=== PATIENT | female | born 1990 | race Caucasian/White ===

== ENCOUNTER → 2017-03-08 | Outpatient (CLI) | payer BC ==
[~2017-03-08] MED LIST: ZOFR4TAB3 PO
[2017-03-08 18:15] LABS: BASO # 0.1 10^3/uL (0.0-0.2); BASO % 0.8 % (0.0-1.0); IMMATURE GRANULOCYTE % 0.3 % (0-0); LYMPH # 1.6 10^3/uL (1.5-6.5); LYMPH % 27.4 % (24.0-44.0); MEAN CORPUSCULAR HEMOGLOBIN 29.7 pg (27.0-33.0); MEAN CORPUSCULAR HGB CONC 33.7 g/dl (32.0-36.5); MEAN CORPUSCULAR VOLUME 88.3 fl (80.0-96.0); MONO # 0.5 10^3/uL (0.0-0.8); MONO % 8.1 % (0.0-5.0); NEUTROPHILS # 3.8 10^3/uL (1.8-7.7); NEUTROPHILS % 63.4 % (36.0-66.0); PLATELET COUNT, AUTOMATED 265 10^3/uL (150-450); RED CELL DISTRIBUTION WIDTH 11.9 % (11.5-14.5); WHITE BLOOD COUNT 5.9 10^3/uL (4.0-10.0)
[2017-03-08 18:19] LABS: ADD MORPHOLOGY? NO
[2017-03-08 18:41] LABS: ALBUMIN/GLOBULIN RATIO 1.21 (1.00-1.93); ALKALINE PHOSPHATASE 46 U/L (45-117); ALT/SGPT 33 U/L (12-78); ANION GAP 6 MEQ/L (8-16); AST/SGOT 14 U/L (15-37); BILIRUBIN,TOTAL 0.6 MG/DL (0.2-1.0); BLOOD UREA NITROGEN 10 MG/DL (7-18); CALCIUM LEVEL 8.6 MG/DL (8.5-10.1); CARBON DIOXIDE LEVEL 31 MEQ/L (21-32); CHLORIDE LEVEL 104 MEQ/L (98-107); CREATININE FOR GFR 0.62 MG/DL (0.55-1.02); GLOMERULAR FILTRATION RATE > 60.0 (>60); GLUCOSE, FASTING 75 MG/DL (70-105); POTASSIUM SERUM 3.8 MEQ/L (3.5-5.1); SODIUM LEVEL 141 MEQ/L (136-145); TOTAL PROTEIN 7.3 GM/DL (6.4-8.2)
== END ==
LOC: M WUC 15:10
PROVIDERS: ATTEND Physician Assistant
DX: R19.7 Diarrhea, unspecified (principal)

== ENCOUNTER → 2017-03-09 | Outpatient (REF) | payer BC | LOC: M LAB REF 10:16 | PROVIDERS: ATTEND Physician Assistant | DX: R19.7 Diarrhea, unspecified (principal); R21 Rash and other nonspecific skin eruption ==

== ENCOUNTER 2017-03-10 10:06 | Emergency (ER) | payer BC ==
[~2017-03-10] VITALS: Ht 152.4 cm; Wt 80.0 kg
[2017-03-10] MEDS ORDERED: NS 1,000 ML IV ONE (14:00)
[2017-03-10] MEDS ORDERED: ONDANSETRON 4MG/2ML VIAL (J2405) IV ONE (14:00)
[2017-03-10 14:40] LABS: BASO % 0.7 % (0.0-1.0); IMMATURE GRANULOCYTE % 0.4 % (0-0); LYMPH # 1.6 10^3/uL (1.5-6.5); LYMPH % 30.5 % (24.0-44.0); MEAN CORPUSCULAR HEMOGLOBIN 29.7 pg (27.0-33.0); MEAN CORPUSCULAR VOLUME 87.1 fl (80.0-96.0); MONO # 0.5 10^3/uL (0.0-0.8); MONO % 8.9 % (0.0-5.0); NEUTROPHILS # 3.2 10^3/uL (1.8-7.7); NEUTROPHILS % 59.5 % (36.0-66.0); PLATELET COUNT, AUTOMATED 281 10^3/uL (150-450); RED CELL DISTRIBUTION WIDTH 11.9 % (11.5-14.5); WHITE BLOOD COUNT 5.4 10^3/uL (4.0-10.0)
[2017-03-10 14:43] LABS: ADD MORPHOLOGY? NO
[2017-03-10 15:11] LABS: CONTROL LINE UCG INT CTR LINE PRESENT
[2017-03-10 15:15] LABS: ALBUMIN 4.1 GM/DL (3.2-5.2); ALBUMIN/GLOBULIN RATIO 1.28 (1.00-1.93); ALKALINE PHOSPHATASE 49 U/L (45-117); ALT/SGPT 89 U/L (12-78); ANION GAP 8 MEQ/L (8-16); AST/SGOT 41 U/L (15-37); BILIRUBIN,DIRECT 0.2 MG/DL (0.0-0.2); BILIRUBIN,TOTAL 0.6 MG/DL (0.2-1.0); BLOOD UREA NITROGEN 8 MG/DL (7-18); CALCIUM LEVEL 8.7 MG/DL (8.5-10.1); CARBON DIOXIDE LEVEL 28 MEQ/L (21-32); CHLORIDE LEVEL 105 MEQ/L (98-107); CREATININE FOR GFR 0.57 MG/DL (0.55-1.02); GLOMERULAR FILTRATION RATE > 60.0 (>60); GLUCOSE, FASTING 81 MG/DL (70-105); POTASSIUM SERUM 3.7 MEQ/L (3.5-5.1); SODIUM LEVEL 141 MEQ/L (136-145); TOTAL PROTEIN 7.3 GM/DL (6.4-8.2)
--- NOTE | 2017-03-10 15:32 | REP ---
RIGHT UPPER QUADRANT ULTRASOUND: Real-time sonographic evaluation of the right upper quadrant performed. There is mild sludge in the gallbladder without gallstones. There is no gallbladder wall thickening or pericholecystic fluid. There is no intrahepatic or extrahepatic biliary dilatation, common bile duct measuring 4 mm in diameter. Laterally in the right lobe of the liver is a 1 cm hyperechoic nodule consistent with hemangioma. No other liver abnormality is seen. Pancreas is grossly unremarkable, but not optimally seen due to overlying bowel gas. Right kidney demonstrates no hydronephrosis or nephrolithiasis with normal size at 10.9 cm in length. IMPRESSION: Mild sludge in the gallbladder without gallstones, gallbladder wall thickening, pericholecystic fluid or biliary diltation. There appears to be a small hemangioma in the right lobe of the liver. Signed by Bon Merino MD 03/10/2017 04:17 P
[2017-03-10] MEDS ORDERED: ZOFR4TAB3 PO (16:32)
[2017-03-10 16:38] VITALS: BP 179/88
== END 2017-03-10 16:44 | disposition home or self-care (01) ==
LOC: M ED 10:06
DX: K80.50 Calculus of bile duct without cholangitis or cholecystitis without obstruction (principal); Z83.79 Family history of other diseases of the digestive system; Z84.1 Family history of disorders of kidney and ureter
CPT/HCPCS: 36415; 76705; 80048; 80076; 81001; 81025; 83690; 84703; 85025; 87086; 96374; 99284; J2405

== ENCOUNTER → 2017-10-30 | Outpatient (REF) | payer BC | LOC: M LAB REF 17:08 | DX: Z12.4 Encounter for screening for malignant neoplasm of cervix (principal) | CPT/HCPCS: G0123 ==

== ENCOUNTER → 2018-03-05 | Outpatient (REF) | payer BC | LOC: M LAB REF 13:26 | DX: R30.0 Dysuria (principal) | CPT/HCPCS: 87186 ==

== ENCOUNTER → 2018-10-19 | Outpatient (REF) | payer BC ==
[~2018-10-19] MED LIST changes: +ZOFR4TAB14 PO; -ZOFR4TAB3 PO
[2018-10-19 12:42] LABS: INFLUENZA A AMPLIFICATION NEGATIVE (NEGATIVE); INFLUENZA B AMPLIFICATION NEGATIVE (NEGATIVE)
== END ==
LOC: M LAB REF 11:59
PROVIDERS: ATTEND Physician Assistant Medical
DX: J11.1 Influenza due to unidentified influenza virus with other respiratory manifestations (principal)

== ENCOUNTER → 2018-11-23 | Outpatient (REF) | payer OTHER | LOC: M LAB REF 17:38 | PROVIDERS: ATTEND Advanced Practice Midwife | DX: Z12.4 Encounter for screening for malignant neoplasm of cervix (principal) ==

== ENCOUNTER → 2019-01-07 | Outpatient (REF) | payer OTHER ==
[2019-01-07 15:29] LABS: CHLAMYDIA DNA AMPLIFICATION NEGATIVE (NEGATIVE); GC DNA AMPLIFICATION NEGATIVE (NEGATIVE)
== END ==
LOC: M LAB REF 12:45
PROVIDERS: ATTEND Physician Assistant
DX: R30.0 Dysuria (principal); Z20.2 Contact with and (suspected) exposure to infections with a predominantly sexual mode of transmission

== ENCOUNTER → 2019-01-24 | Outpatient (CLI) | payer BC, OTHER | LOC: M LAB 16:23 | PROVIDERS: ATTEND Advanced Practice Midwife | DX: Z32.01 Encounter for pregnancy test, result positive (principal); Z3A.00 Weeks of gestation of pregnancy not specified ==

== ENCOUNTER → 2019-01-27 | Outpatient (CLI) | payer BC, OTHER ==
--- NOTE | 2019-01-27 19:48 | REP ---
HISTORY: Supervision of normal . COMPARISON: None. Transvesical imaging was performed. Within the uterus there is an anechoic structure with increased echo surrounding it consistent with a decidual reaction. Within the gestational sac there is echogenic material consistent with a pole, the mean crown rump length measurement of which is consistent with an 8 week 0 day gestational age. Based on that the estimated date of delivery is 09/08/2019. Within the gestational sac there is a tiny anechoic structure consistent with a yolk sac. Doppler interrogation of the heart shows a heart rate of 172 beats per minute. Evaluation of the maternal adnexal spaces showed no abnormalities. No chorionic or subchorionic abnormality was noted. IMPRESSION: Early OB ultrasound as described above. Electronically Signed by Mason Gonzalez DO 01/28/2019 02:12 P
== END ==
LOC: M RAD 17:20
PROVIDERS: ATTEND Obstetrics & Gynecology
DX: Z34.81 Encounter for supervision of other normal pregnancy, first trimester (principal); Z36.89 Encounter for other specified antenatal screening; Z3A.08 8 weeks gestation of pregnancy

== ENCOUNTER → 2019-02-23 | Outpatient (CLI) | payer BC, OTHER ==
[2019-02-23 15:28] LABS: BASO % 0.5 % (0.0-1.0); HEMOGLOBIN 12.1 g/dl (12.0-15.5); LYMPH # 1.9 10^3/uL (1.5-5.0); LYMPH % 22.7 % (24.0-44.0); MEAN CORPUSCULAR HEMOGLOBIN 29.7 pg (27.0-33.0); MEAN CORPUSCULAR HGB CONC 33.6 g/dl (32.0-36.5); MEAN CORPUSCULAR VOLUME 88.5 fl (80.0-96.0); MONO # 0.6 10^3/uL (0.0-0.8); MONO % 6.6 % (0.0-5.0); NEUTROPHILS # 5.8 10^3/uL (1.5-8.5); PLATELET COUNT, AUTOMATED 255 10^3/uL (150-450); RED BLOOD COUNT 4.07 10^6/uL (4.00-5.40); WHITE BLOOD COUNT 8.3 10^3/uL (4.0-10.0)
[2019-02-23 16:50] LABS: CHLAMYDIA DNA AMPLIFICATION NEGATIVE (NEGATIVE); GC DNA AMPLIFICATION NEGATIVE (NEGATIVE)
[2019-02-25 09:42] LABS: HIV 1&2 SCREEN CENTAUR NEGATIVE (NEGATIVE); RUBELLA IgG QUALITATIVE IMMUNE (IMMUNE)
== END ==
LOC: M LAB 14:44
PROVIDERS: ATTEND Advanced Practice Midwife
DX: Z36.89 Encounter for other specified antenatal screening (principal)

== ENCOUNTER → 2019-04-07 | Outpatient (CLI) | payer BC, OTHER ==
--- NOTE | 2019-04-07 09:07 | REP ---
Clinical: Anatomical evaluation. Comparison: None . Findings: Examination demonstrates a single live intrauterine in cephalic presentation. motion is identified by technologist. Placenta is noted posterior and grade zero without evidence for placenta previa or abruption. Amniotic fluid volume is normal. Cervix measures 5.6 cm in length and appears closed. No evidence for nuchal cord. Gestational age by first US 18 weeks 0 days with ALMITA 09/08/2019 . Gestational age by current measurements 18 weeks 3-day with ALMITA 09/05/2019 . FHR equals 139 beats per minute. BPD 4.1 cm 18 weeks 3 days HC 14.7 cm 17 weeks 6 days AC 13.4 cm 18 weeks 6 days FL 2.8 cm 18 weeks 5 days HL 2.7 cm 18 weeks 6 days HC/AC ratio 1.09 Estimated weight 252 grams ( 72nd percentile). Anatomical assessment demonstrates normal structures including cranium, choroid plexus, cavum, cerebellum/posterior fossa, facial features, lungs, four-chamber heart, diaphragm, stomach, cord insertion, kidneys/bladder, spine, and extremities. Limited evaluation of the cardiac ventricular outflow tracts and three-vessel cord noted. Impression: 1. Single live intrauterine in cephalic presentation demonstrating appropriate interval growth compared to first ultrasound. 2. Limited evaluation of the ventricular outflow tracts and three-vessel cord. Remainder of the anatomical assessment is complete and normal. Electronically Signed by George Guido MD 04/07/2019 08:58 A
== END ==
LOC: M RAD 07:43
PROVIDERS: ATTEND Advanced Practice Midwife
DX: Z34.82 Encounter for supervision of other normal pregnancy, second trimester (principal)

== ENCOUNTER → 2019-04-25 | Outpatient (CLI) | payer BC, OTHER ==
--- NOTE | 2019-04-25 13:53 | REP ---
OB ULTRASOUND: Real-time sonographic evaluation of the gravid uterus performed. There is a single intrauterine gestation with an estimated gestational age 20 weeks 4 days, EDC 09/08/2019. Today's measurements indicate appropriate growth. Biometry and Growth: BPD 50 mm = 21 weeks 0 days, 59th percentile HC 180 mm = 20 weeks 3 days, 44th percentile AC 161 mm = 20 weeks 1 day, 62nd percentile FL 37 mm = 21 weeks 5 days, 79th percentile HC/AC ratio 1.12 with a normal range. Estimated weight 417 grams, 72nd percentile. SEEN/GROSSLY UNREMARKABLE Lateral ventricles Yes Posterior fossa Yes Upper lip Yes Four-chamber heart Yes LVOT Yes RVOT Yes Stomach Yes Cord insertion Yes Three vessel cord Yes Kidneys No Bladder Yes Spine No Cervical length: Closed and measures 5.7 cm in length. heart rate: 157 beats per minute. position: Variable. Placenta: Posterior and grade 0 with no previa or abruption. Amniotic fluid: Within normal limits. Electronically Signed by Bon Merino MD 04/27/2019 10:20 A
== END ==
LOC: M RAD 11:05
PROVIDERS: ATTEND Advanced Practice Midwife
DX: Z34.82 Encounter for supervision of other normal pregnancy, second trimester (principal)

== ENCOUNTER → 2019-05-09 | Outpatient (REF) | payer BC | LOC: M PLALAB 09:00 | PROVIDERS: ATTEND Advanced Practice Midwife | DX: Z33.1 Pregnant state, incidental (principal) ==

== ENCOUNTER → 2019-06-10 | Outpatient (CLI) | payer BC, OTHER | LOC: M PLALAB 11:35 | PROVIDERS: ATTEND Advanced Practice Midwife | DX: R73.01 Impaired fasting glucose (principal) ==

== ENCOUNTER → 2019-06-15 | Outpatient (CLI) | payer BC, OTHER | LOC: M LAB 08:03 | PROVIDERS: ATTEND Advanced Practice Midwife | DX: R73.02 Impaired glucose tolerance (oral) (principal) ==

== ENCOUNTER → 2019-08-12 | Outpatient (REF) | payer OTHER | LOC: M SFHCWAGY 18:22 | PROVIDERS: ATTEND Advanced Practice Midwife | DX: Z34.93 Encounter for supervision of normal pregnancy, unspecified, third trimester (principal) ==

== ENCOUNTER → 2019-08-16 | Outpatient (REF) | payer OTHER ==
[2019-08-16 18:13] LABS: HEMATOCRIT 31.1 % (36.0-47.0); HEMOGLOBIN 10.1 g/dl (12.0-15.5); MEAN CORPUSCULAR HEMOGLOBIN 28.6 pg (27.0-33.0); MEAN CORPUSCULAR HGB CONC 32.5 g/dl (32.0-36.5); MEAN CORPUSCULAR VOLUME 88.1 fl (80.0-96.0); PLATELET COUNT, AUTOMATED 216 10^3/uL (150-450); RED BLOOD COUNT 3.53 10^6/uL (4.00-5.40); WHITE BLOOD COUNT 9.7 10^3/uL (4.0-10.0)
[2019-08-16 18:45] LABS: CREATININE,RANDOM URINE 73.4 MG/DL; TOTAL PROTEIN,RANDOM URINE 20.1 MG/DL (0.0-12.0)
== END ==
LOC: M PLALAB 14:17
PROVIDERS: ATTEND Advanced Practice Midwife
DX: O13.3 Gestational [pregnancy-induced] hypertension without significant proteinuria, third trimester (principal)

== ENCOUNTER 2019-08-19 07:54 | Inpatient (IN) | payer BC, OTHER ==
[2019-08-19] VITALS (15 sets, daily range): BP systolic 103–139; BP diastolic 59–80
[~2019-08-19] VITALS: Ht 152.4 cm; Wt 101.7 kg
[2019-08-19] MEDS ORDERED: PRENTAB9 PO (08:29)
[2019-08-19] MEDS: miSOPROStol 50 MCG 1/2 TAB (S0191) PO SCH ×3 (09:07→17:12)
--- NOTE | 2019-08-19 09:20 | HPE ---
DATE OF ADMISSION: 08/19/2019 Saima is a 28-year-old 2, para 1-0-0-1 at 37 weeks gestation, EDC of 09/08/2019 based on first trimester ultrasound. She presents to labor and delivery today for induction of labor due to gestational hypertension. She does deny headaches, visual disturbances, epigastric pain and right upper quadrant discomfort. She denies any regular painful contractions, vaginal bleeding and leakage of fluid. The fetus has been active. Her care was initiated at [facility] in the first trimester. course uncomplicated until this week's diagnosis of gestational hypertension. OBSTETRICAL HISTORY: December 2010 40 weeks gestation, spontaneous labor. Spontaneous vaginal delivery, 7 pound 5 ounce male. OBSTETRIC LABS: A-, antibody screen negative, varicella immune, VDRL nonreactive. Urine culture no growth. Hep B surface antigen negative. HIV negative. Hep C antibody nonreactive. Gonorrhea and chlamydia negative, 1-hour glucose elevated at 134. Her 3-hour glucose tolerance test was normal fasting 82, 1-hour 162, 2-hour 116 and 3-hour 74 and her GBS is negative. PAST MEDICAL HISTORY: Childhood varicella. SURGERIES: [place] tooth extraction. FAMILY HISTORY: Diabetes, hypertension, thyroid dysfunction. SOCIAL HISTORY: The patient is . She is a nonsmoker. She denies alcohol and drug use. No history of any sexually transmitted infections and she denies history of abuse physical, sexual and emotional allergies. ALLERGIES: No known drug allergies. CURRENT MEDICATION: vitamin. OBJECTIVE: Temperature 97.7, pulse 96, respirations 18, BP is 133/73 upon arrival lying flat in the bed at rest. She is alert and oriented times three. No apparent discomfort. heart rate is 155 with moderate variability, positive accelerations, no decelerations. There is no pattern of contractions. Her abdomen is gravid, cephalic presentation. Estimated weight 7 pounds. Sterile vaginal exam 1 cm dilated, 50% effaced, -3 station, posterior and soft. No bloody show with the exam. ASSESSMENT: Intrauterine at 37 weeks. heart rate category 1. Gestational hypertension. PLAN: Admit the patient to labor and delivery. Out of bed ad kassidy. Regular diet at this time. Repeat pre-eclamptic labs and spot urine today. Start misoprostol 50 mcg by mouth every 4 hours cervical ripening. Pitocin IV for induction. I did review risks, benefits and alternatives with the patient, all of her questions have been answered. She has been verbally consented for emergency surgery and blood products if they are necessary. I do anticipate cervical ripening, labor and vaginal delivery.
[2019-08-19 09:29] LABS: HEMATOCRIT 29.5 % (36.0-47.0); HEMOGLOBIN 9.8 g/dl (12.0-15.5); MEAN CORPUSCULAR HEMOGLOBIN 28.9 pg (27.0-33.0); MEAN CORPUSCULAR HGB CONC 33.2 g/dl (32.0-36.5); PLATELET COUNT, AUTOMATED 200 10^3/uL (150-450); RED BLOOD COUNT 3.39 10^6/uL (4.00-5.40); WHITE BLOOD COUNT 9.5 10^3/uL (4.0-10.0)
[2019-08-19 09:58] LABS: TOTAL PROTEIN,RANDOM URINE 42.5 MG/DL (0.0-12.0)
[2019-08-19 10:01] LABS: ALT/SGPT 14 U/L (12-78); BILIRUBIN,TOTAL 0.3 MG/DL (0.2-1.0); CREATININE FOR GFR 0.45 MG/DL (0.55-1.30); GLOMERULAR FILTRATION RATE > 60.0 (>60); LDH LACTATE DEHYDROGENASE 227 U/L (84-246); URIC ACID 3.1 MG/DL (2.6-6.0)
[2019-08-19] MEDS ORDERED: OXYTOCIN DRIP 30 UNITS in IV 1 EA IV SCH (18:00)
[2019-08-19] MEDS: LR 1,000 ML IV SCH (21:26)
[2019-08-20] VITALS (18 sets, daily range): BP systolic 113–142; BP diastolic 59–89
[2019-08-20] MEDS ORDERED: PROMETHAZINE INJ 25 MG/ML VIAL (J2550) IV ONE (01:15)
[2019-08-20] MEDS ORDERED: BUTORPHANOL 2 MG/ML INJ (J0595) IV ONE (01:15)
[2019-08-20] MEDS: LR 1,000 ML IV SCH (05:17)
[2019-08-20] MEDS ORDERED: FENTANYL 2MCG/ML ROPIVACAINE 0.2% IN 0.9% NACL 100ML IVBAG As Ordered ONE (05:35)
[2019-08-20] MEDS ORDERED: SLF 3 ML SYR IV SCH (06:00)
[2019-08-20] MEDS ORDERED: OXYTOCIN DRIP 30 UNITS in IV 1 EA IV SCH (06:49)
[2019-08-20] MEDS ORDERED: DOCUSATE SODIUM 100 MG CAP PO PRN (07:00)
[2019-08-20] MEDS ORDERED: MEASLES,MUMPS,RUBELLA VACCINE INJ (MMR-II) (90707) SC SCH (07:00)
[2019-08-20] MEDS ORDERED: ACETAMINOPHEN 500 MG TAB PO PRN (07:00)
[2019-08-20] MEDS ORDERED: IBUPROFEN 800 MG TAB PO PRN (07:00)
[2019-08-20] MEDS ORDERED: RHOGAM 300 MCG (1500 IU) INJ (J2790) IM SCH (07:00)
[2019-08-20] MEDS ORDERED: IBUPROFEN 600 MG TAB PO PRN (07:00)
[2019-08-20] MEDS ORDERED: DIBUCAINE 1% OINTMENT 30GM TOP PRN (07:00)
[2019-08-20] MEDS ORDERED: ACETAMINOPHEN TAB 650MG DOSE (2X325MG) PO PRN (07:00)
[2019-08-20] MEDS ORDERED: SLF 3 ML SYR IV PRN (08:15)
[2019-08-20] MEDS ORDERED: PRENATAL VITAMINS CHEWABLE TABLET PO SCH (09:00)
--- NOTE | 2019-08-20 11:31 | DN ---
DATE: 08/19/2019 Saima is 28-year-old 2, para 2-0-0-2 now who was admitted to labor and delivery for induction of labor due to gestational hypertension. Misoprostol and IV Pitocin was used and labor did ensue. She utilized some IV pain medication for labor coping. She reached full dilation at 0615 hours. She had spontaneous rupture of membranes for clear, odorless fluid 0617. She pushed to a normal spontaneous vaginal delivery of a live female in JELANI position with restitution to ROT position at 0618 hours. There was no nuchal cord. The shoulders delivered spontaneously and the corpus immediately followed. The female was placed on maternal abdomen for bonding and her mouth and nares were suctioned. She was crying and active. The cord was clamped times two once pulsations ceased and cut by the father of the baby under my direction. Cord blood was obtained. Spontaneous expulsion of an intact placenta with three-vessel cord by Bennett mechanism was at 0625 hours. Uterine hemostasis achieved with IV Pitocin rapid infusion and uterine fundal massage. Estimated blood loss 450 mL. The bladder was straight catheterized for 100 mL of dark yellow urine. Perineum and vagina were inspected and noted to be intact. female weighed 3090 grams, 6 pounds 13 ounces, scores of 9 and 9. Mom is going to breastfeed her daughter and the family have named her Lacee. At the close of delivery, lap counts and instrument counts were correct and verified.
[2019-08-21 06:00] VITALS: BP 114/62
== END 2019-08-21 14:00 | disposition home or self-care (01) | DRG 560 ==
LOC: M LDI 07:54 → M OBS 08-20 08:45
PROVIDERS: ADMIT Advanced Practice Midwife; ATTEND Advanced Practice Midwife
PROC: 10E0XZZ Delivery of Products of Conception, External Approach (ICD-10-PCS; principal; 2019-08-19)
PROC: 3E0P7GC Introduction of Other Therapeutic Substance into Female Reproductive, Via Natural or Artificial Opening (ICD-10-PCS; 2019-08-19)
DX: O13.4 Gestational [pregnancy-induced] hypertension without significant proteinuria, complicating childbirth (principal); Z3A.37 37 weeks gestation of pregnancy; Z37.0 Single live birth

== ENCOUNTER → 2019-12-21 | Outpatient (CLI) | payer BC, OTHER ==
[~2019-12-21] MED LIST changes: +IBUP80TA PO; +OXYC1TAB23 PO; +PRENTAB9 PO
== END ==
LOC: M LABSMTC 13:34
PROVIDERS: ATTEND Anesthesiology
DX: Z01.818 Encounter for other preprocedural examination (principal); Z11.59 Encounter for screening for other viral diseases; Z20.828 Contact with and (suspected) exposure to other viral communicable diseases
CPT/HCPCS: C9803; U0003

== ENCOUNTER 2019-12-26 08:20 | Day surgery (SDC) | payer BC, OTHER ==
[~2019-12-26] VITALS: Ht 152.4 cm; Wt 90.7 kg
[~2019-12-26 08:20] MED LIST changes: -IBUP80TA PO; +LR 1,000 ML IV ONE; -OXYC1TAB23 PO
[2019-12-26 08:52] LABS: HEMATOCRIT 37.7 % (36.0-47.0); HEMOGLOBIN 12.2 g/dl (12.0-15.5); MEAN CORPUSCULAR HEMOGLOBIN 28.8 pg (27.0-33.0); MEAN CORPUSCULAR HGB CONC 32.4 g/dl (32.0-36.5); MEAN CORPUSCULAR VOLUME 88.9 fl (80.0-96.0); PLATELET COUNT, AUTOMATED 248 10^3/uL (150-450); RED BLOOD COUNT 4.24 10^6/uL (4.00-5.40); WHITE BLOOD COUNT 6.2 10^3/uL (4.0-10.0)
[2019-12-26] MEDS ORDERED: MIDAZOLAM INJ 2MG/2ML VIAL (J2250 PER 1MG) As Ordered ONE (09:17)
[2019-12-26] MEDS ORDERED: propofoL 200 MG/20 ML VIAL As Ordered ONE ×2 (09:17→10:13)
[2019-12-26] MEDS ORDERED: ROCURONIUM BROMIDE 50 MG/5 ML VIAL As Ordered ONE (09:18)
[2019-12-26] MEDS ORDERED: KETOROLAC 60MG 2ML VIAL As Ordered ONE (09:18)
[2019-12-26] MEDS ORDERED: dexameTHASONE 4 MG/ML 1ML VIAL (J1100 PER 1MG) As Ordered ONE (09:18)
[2019-12-26] MEDS ORDERED: ONDANSETRON 4MG/2ML VIAL As Ordered ONE (09:18)
[2019-12-26] MEDS ORDERED: fentaNYL 100 MCG/2 ML INJECTION (J3010) As Ordered ONE (09:18)
[2019-12-26] MEDS ORDERED: IBUP80TA PO (09:36)
[2019-12-26] MEDS ORDERED: OXYC1TAB23 PO (09:39)
[2019-12-26] MEDS ORDERED: BUPIVACAINE HCL 0.25% 30ML VIAL As Ordered ONE (09:53)
--- NOTE | 2019-12-26 09:56 | ROOPDOC ---
[facility] Report Of Operation Report of Operation DATE OF PROCEDURE: 12/26/19 PREPROCEDURE DIAGNOSES: Satisfied parity with undesired fertility. POSTPROCEDURE DIAGNOSES: Satisfied parity with undesired fertility. PROCEDURE: Diagnostic operative laparoscopy with bilateral salpingectomy for purpose of tubal ligation.. SURGEON: Anne Patel MD ACCOUNTING DIRECTOR: None ANESTHESIA: General endotracheal anesthesia. INTRAVENOUS FLUIDS: 400 mL of lactated Ringer's solution. ESTIMATED BLOOD LOSS: Approximately 5 mL. URINE OUTPUT: 400 mL. PREOPERATIVE ANTIBIOTICS: None. SPECIMENS: Bilateral fallopian tubes. COMPLICATIONS: None OPERATIVE FINDINGS: Patient with normal appearing uterus, bilateral adnexa. Appendix was visualized, appeared to be normal. DESCRIPTION OF PROCEDURE: After informed consent was obtained and written consent was reviewed, the patient was brought to the operating room where she was placed under general endotracheal anesthesia. She was then placed in the lithotomy position. She was prepped and draped in a normal sterile fashion. A time-out in the operating room was then performed identifying the patient, procedure to be performed, as well as drug allergies. [place] speculum was then placed revealing the cervix. The anterior lip of the cervix was grasped with a single-tooth tenaculum. A Hulka tenaculum was then advanced through the cervical os for a means to manipulate the uterus. Single-tooth tenaculum as well as the speculum was removed. Espinosa catheter was then placed and set to gravity. Gloves were changed. Attention was turned to the patient's abdomen where 0.25% Marcaine was infused in umbilical region. This area was incised and a 5 mm trocar and sleeve was advanced through this incision. The laparoscope was then replaced revealing intraabdominal placement. Pneumoperitoneum was then obtained with CO2 gas. The abdomen was then surveyed with the above-noted findings. Two additional port sites were placed. One port site was placed 2 cm above the pubis symphysis in the midline. This area was infused with 0.25% Marcaine. An incision was made in this area and 8 mm trocar and sleeve was advanced through this incision under direct visualization. A second accessory port was placed left side of the patient's abdomen. This area was infused with 0.25% Marcaine. A 5 mm trocar and sleeve was advanced through this incision under direct visualization. Next, the right fallopian tube was then placed on traction. Using Harmonic Rigoberto scalpel device, the mesosalpinx was dissected underneath the fallopian tube and was transected at the level of the uterus. Specimen was then brought out the port site. In a similar fashion, left fallopian tube was dissected along the left mesosalpinx underneath the fallopian tube and transected at the level of the uterus. The specimen was removed. Surgical sites were inspected and noted to be hemostatic. Pneumoperitoneum was then released and port sites were then closed with #4-0 Monocryl and was dressed with Dermabond. Espinosa catheter as well as a Hulka tenaculum was removed. The patient was then taken out of the lithotomy position, was awakened from general anesthesia and taken to recovery in stable condition. Counts were correct. ANNE PATEL MD. Dec 26, 2019 09:56
[2019-12-26] MEDS ORDERED: ACETAMINOPHEN 1000MG 100ML IV BTL (OFIRMEV) (J0131 PER 10MG) As Ordered ONE (10:22)
[2019-12-26] MEDS ORDERED: HYDROmorphone HCL 2 MG/ML 1ML VIAL (J1170) As Ordered ONE (10:37)
[2019-12-26] MEDS ORDERED: SUGAMMADEX SODIUM 500 MG/5 ML VIAL (BRIDION) As Ordered ONE (10:48)
[2019-12-26] MEDS ORDERED: oxyCODONE 5MG TAB PO PRN (11:30)
[2019-12-26] MEDS ORDERED: LR 1,000 ML IV SCH (11:30)
[2019-12-26] MEDS ORDERED: fentaNYL 100 MCG/2 ML INJECTION (J3010) IV PRN (11:30)
[2019-12-26] MEDS ORDERED: ONDANSETRON 4MG/2ML VIAL IV PRN (11:30)
[2019-12-26] MEDS ORDERED: HYDROMORPHONE HCL 0.5 MG/ 0.5 ML SYRINGE (J1170 PER 1) IV PRN (11:30)
[2019-12-26] MEDS ORDERED: PERCOCET 5MG/325MG TAB PO PRN (11:45)
[2019-12-26 12:45] VITALS: BP 131/59
[2019-12-26] MEDS ORDERED: KETOROLAC 30 MG/ML 1ML VIAL IV SCH (17:00)
== END 2019-12-26 13:03 | disposition home or self-care (01) ==
LOC: M SDC 08:20
PROVIDERS: ATTEND Obstetrics & Gynecology
DX: Z30.2 Encounter for sterilization (principal); I10 Essential (primary) hypertension; Z79.899 Other long term (current) drug therapy
CPT/HCPCS: 36415; 58661; 81025; 85027; 86850; 86870; 86900; 86901; 88302; J0131; J1100; J1170; J1885; J2250; J2405; J3010

== ENCOUNTER → 2020-01-13 | Outpatient (REF) | payer OTHER, BC ==
[~2020-01-13] MED LIST changes: +IBUP80TA PO; -LR 1,000 ML IV ONE; +OXYC1TAB23 PO
== END ==
LOC: M SFHCPLAZ 07:00
PROVIDERS: ATTEND Specialist
DX: N39.0 Urinary tract infection, site not specified (principal)

== ENCOUNTER → 2020-06-26 | Outpatient (REF) | payer OTHER ==
[2020-06-26 13:46] LABS: BASO # 0.1 10^3/uL (0.0-0.2); BASO % 0.7 % (0.0-1.0); HEMATOCRIT 37.8 % (36.0-47.0); HEMOGLOBIN 12.1 g/dl (12.0-15.5); LYMPH # 1.5 10^3/uL (1.5-5.0); LYMPH % 21.9 % (24.0-44.0); MEAN CORPUSCULAR HEMOGLOBIN 28.7 pg (27.0-33.0); MEAN CORPUSCULAR VOLUME 89.8 fl (80.0-96.0); MONO # 0.5 10^3/uL (0.0-0.8); MONO % 7.3 % (0.0-5.0); NEUTROPHILS # 4.7 10^3/uL (1.5-8.5); NEUTROPHILS % 69.8 % (36.0-66.0); PLATELET COUNT, AUTOMATED 216 10^3/uL (150-450); RED BLOOD COUNT 4.21 10^6/uL (4.00-5.40); WHITE BLOOD COUNT 6.7 10^3/uL (4.0-10.0)
[2020-06-26 14:10] LABS: HEMOGLOBIN A1c 5.3 %
[2020-06-26 14:22] LABS: ALBUMIN 4.1 GM/DL (3.2-5.2); ALT/SGPT 24 U/L (12-78); BILIRUBIN,DIRECT 0.2 MG/DL (0.0-0.2); BILIRUBIN,TOTAL 0.5 MG/DL (0.2-1.0); BLOOD UREA NITROGEN 12 MG/DL (7-18); CALCIUM LEVEL 9.1 MG/DL (8.5-10.1); CARBON DIOXIDE LEVEL 27 MEQ/L (21-32); CHLORIDE LEVEL 106 MEQ/L (98-107); CHOLESTEROL LEVEL 172 MG/DL (<200); CHOLESTEROL RISK RATIO 2.457 (<5); CREATININE FOR GFR 0.75 MG/DL (0.55-1.30); GLOMERULAR FILTRATION RATE > 60.0 (>60); GLUCOSE, FASTING 94 MG/DL (70-100); HDL CHOLESTEROL 70 MG/DL (>40); LDL CHOLESTEROL 91 MG/DL (<100); NON-HDL-C 102 MG/DL; POTASSIUM SERUM 3.9 MEQ/L (3.5-5.1); SODIUM LEVEL 140 MEQ/L (136-145); TRIGLYCERIDES LEVEL 53 MG/DL (<150)
== END ==
LOC: M SFHCPLAZ 09:46
PROVIDERS: ATTEND Physician Assistant Medical
DX: Z00.00 Encounter for general adult medical examination without abnormal findings (principal); Z13.1 Encounter for screening for diabetes mellitus; K80.00 Calculus of gallbladder with acute cholecystitis without obstruction

== ENCOUNTER → 2020-07-09 | Outpatient (CLI) | payer BC, OTHER ==
--- NOTE | 2020-07-09 09:57 | REP ---
INDICATION: CALCULIS OF GALLBLADDER COMPARISON: None TECHNIQUE: Axial noncontrast images from the lung bases to the pubic symphysis with coronal and sagittal reformations. This CT examination was performed using the following dose reduction techniques: Automated exposure control, adjustment of mA and/or kv according to the patient's size, and use of iterative reconstruction technique. FINDINGS: Lung bases are clear. Visualized heart and pericardium normal. Liver, spleen, pancreas, bilateral adrenal glands and kidneys are normal. Gallstone and layering sludge within the gallbladder are suggested without wall thickening or pericholecystic fluid to suggest acute cholecystitis. The enteric system is unremarkable and without obstruction or acute inflammatory process. Normal terminal ileum and appendix identified in the right lower quadrant. Pelvis demonstrates normal bladder and age-appropriate uterus/adnexa. No ascites. No free air. No adenopathy. No focal inflammatory stranding. Abdominal aorta without aneurysm. Musculoskeletal structures are intact and without acute osseous abnormality. IMPRESSION: Cholelithiasis. <Electronically signed by George Guido > 07/09/20 0953
== END ==
LOC: M RAD 09:36
PROVIDERS: ATTEND Physician Assistant Medical
DX: K80.00 Calculus of gallbladder with acute cholecystitis without obstruction (principal)

== ENCOUNTER 2020-08-15 20:09 | Emergency (ER) | payer BC, OTHER ==
[~2020-08-15] VITALS: Ht 152.4 cm; Wt 90.9 kg
[2020-08-15 20:10] VITALS: BP 129/76
[2020-08-15] MEDS ORDERED: BACITRACIN OINTMENT 30GM TUBE TOP STA (20:38)
[2020-08-15] MEDS ORDERED: KETOROLAC 60MG 2ML VIAL IM ONE (20:40)
[2020-08-15] MEDS ORDERED: BACIOIN5 OP (20:41)
== END 2020-08-15 21:22 | disposition home or self-care (01) ==
LOC: M ED 20:09
DX: T25.021A Burn of unspecified degree of right foot, initial encounter (principal); X12.XXXA Contact with other hot fluids, initial encounter; Y92.009 Unspecified place in unspecified non-institutional (private) residence as the place of occurrence of the external cause; Y93.9 Activity, unspecified; Y99.9 Unspecified external cause status
CPT/HCPCS: 96372; 99283; J1885

== ENCOUNTER → 2020-09-05 | Outpatient (CLI) | payer BC, OTHER ==
[~2020-09-05] MED LIST changes: +BACIOIN5 OP
== END ==
LOC: M LABSMTC 10:45
PROVIDERS: ATTEND Anesthesiology
DX: Z01.812 Encounter for preprocedural laboratory examination (principal)

== ENCOUNTER 2020-09-10 08:07 | Day surgery (SDC) | payer BC, OTHER ==
[~2020-09-10] VITALS: Ht 157.5 cm; Wt 89.7 kg
[~2020-09-10 08:07] MED LIST changes: +ACETAMINOPHEN 1000MG 100ML IV BTL (OFIRMEV) (J0131 PER 10MG) As Ordered ONE; +AMPICILLIN SOD/SULBACTAM SOD 3 GM in D5W MINI-BAG PLUS 100 ML IV ONE; +CelecoXIB (CeleBREX) 100 MG CAP PO ONE; +LIDOCAINE 2% 100MG/5ML SDV (FOR ANES.) As Ordered ONE; +LR 1,000 ML IV ONE; +MIDAZOLAM INJ 2MG/2ML VIAL (J2250 PER 1MG) As Ordered ONE; +ONDANSETRON 4MG/2ML VIAL As Ordered ONE; +PHENYLephrine 500MCG 5ML (100MCG/ML) SYRINGE As Ordered ONE; +ROCURONIUM BROMIDE 50 MG/5 ML VIAL As Ordered ONE; +SUGAMMADEX SODIUM 500 MG/5 ML VIAL (BRIDION) As Ordered ONE; +dexameTHASONE 4 MG/ML 1ML VIAL (J1100 PER 1MG) As Ordered ONE; +ePHEDrine SULFATE 25 MG/5 ML(5MG/ML) SYRINGE As Ordered ONE; +fentaNYL 250 MCG/5 ML INJECTION (J3010) As Ordered ONE; +propofoL 200 MG/20 ML VIAL As Ordered ONE
[2020-09-10] MEDS ORDERED: LIDOCAINE 1% SDV 30ML VIAL As Ordered ONE (09:19)
[2020-09-10] MEDS ORDERED: BUPIVACAINE HCL 0.25% 30ML VIAL As Ordered ONE (09:19)
[2020-09-10] MEDS ORDERED: KETO10TAB PO (11:09)
[2020-09-10] MEDS ORDERED: oxyCODONE 5MG TAB PO PRN ×2 (11:25→12:50)
[2020-09-10] MEDS ORDERED: fentaNYL 100 MCG/2 ML INJECTION (J3010) As Ordered ONE (11:25)
[2020-09-10] MEDS ORDERED: LR 80 ML IV SCH (11:25)
[2020-09-10] MEDS ORDERED: KETOROLAC 30 MG/ML 1ML VIAL As Ordered ONE (11:25)
[2020-09-10] MEDS ORDERED: ONDANSETRON 4MG/2ML VIAL IV PRN ×2 (11:25→11:30)
[2020-09-10] MEDS ORDERED: KETOROLAC 30 MG/ML 1ML VIAL IV ONE (11:30)
[2020-09-10] MEDS: fentaNYL 100 MCG/2 ML INJECTION (J3010) IV PRN ×2 (11:31→11:38)
[2020-09-10 13:45] VITALS: BP 136/68
== END 2020-09-10 14:00 | disposition home or self-care (01) ==
LOC: M SDC 08:07
PROVIDERS: ATTEND Surgery
DX: K80.10 Calculus of gallbladder with chronic cholecystitis without obstruction (principal)
CPT/HCPCS: 47562; 88304; J0131; J1100; J1885; J2250; J2370; J2405; J3010; S2900

== ENCOUNTER → 2021-02-20 | Outpatient (REF) | payer OTHER ==
[~2021-02-20] MED LIST changes: -ACETAMINOPHEN 1000MG 100ML IV BTL (OFIRMEV) (J0131 PER 10MG) As Ordered ONE; -AMPICILLIN SOD/SULBACTAM SOD 3 GM in D5W MINI-BAG PLUS 100 ML IV ONE; -CelecoXIB (CeleBREX) 100 MG CAP PO ONE; +KETO10TAB PO; -LIDOCAINE 2% 100MG/5ML SDV (FOR ANES.) As Ordered ONE; -LR 1,000 ML IV ONE; -MIDAZOLAM INJ 2MG/2ML VIAL (J2250 PER 1MG) As Ordered ONE; -ONDANSETRON 4MG/2ML VIAL As Ordered ONE; -PHENYLephrine 500MCG 5ML (100MCG/ML) SYRINGE As Ordered ONE; -ROCURONIUM BROMIDE 50 MG/5 ML VIAL As Ordered ONE; -SUGAMMADEX SODIUM 500 MG/5 ML VIAL (BRIDION) As Ordered ONE; -dexameTHASONE 4 MG/ML 1ML VIAL (J1100 PER 1MG) As Ordered ONE; -ePHEDrine SULFATE 25 MG/5 ML(5MG/ML) SYRINGE As Ordered ONE; -fentaNYL 250 MCG/5 ML INJECTION (J3010) As Ordered ONE; -propofoL 200 MG/20 ML VIAL As Ordered ONE
== END ==
LOC: M LAB REF 16:52
PROVIDERS: ATTEND Physician Assistant Medical
DX: J02.9 Acute pharyngitis, unspecified (principal)

== ENCOUNTER → 2021-03-26 | Outpatient (REF) | payer OTHER | LOC: M SFHCWAGY 17:49 | PROVIDERS: ATTEND Advanced Practice Midwife | DX: Z12.4 Encounter for screening for malignant neoplasm of cervix (principal) | CPT/HCPCS: 87624; G0123 ==

== ENCOUNTER → 2021-04-03 | Outpatient (REF) | payer OTHER, BC | LOC: M SFHCPLAZ 12:55 | PROVIDERS: ATTEND Physician Assistant Medical | DX: J06.9 Acute upper respiratory infection, unspecified (principal) ==

== ENCOUNTER → 2021-07-26 | Outpatient (CLI) | payer BC, OTHER ==
[2021-07-26 17:10] LABS: BASO # 0.1 10^3/uL (0.0-0.2); EOS % 0.1 % (0.0-3.0); HEMATOCRIT 37.7 % (36.0-47.0); HEMOGLOBIN 12.1 g/dl (12.0-15.5); LYMPH # 2.1 10^3/uL (1.5-5.0); LYMPH % 23.1 % (24.0-44.0); MEAN CORPUSCULAR HEMOGLOBIN 29.2 pg (27.0-33.0); MEAN CORPUSCULAR HGB CONC 32.1 g/dl (32.0-36.5); MEAN CORPUSCULAR VOLUME 91.1 fl (80.0-96.0); MONO # 0.6 10^3/uL (0.0-0.8); MONO % 6.9 % (2.0-8.0); NEUTROPHILS # 6.2 10^3/uL (1.5-8.5); NEUTROPHILS % 68.6 % (36.0-66.0); PLATELET COUNT, AUTOMATED 253 10^3/uL (150-450); RED BLOOD COUNT 4.14 10^6/uL (4.00-5.40)
[2021-07-26 17:23] LABS: ALBUMIN 4.1 GM/DL (3.2-5.2); ALT/SGPT 29 U/L (12-78); BILIRUBIN,TOTAL 0.4 MG/DL (0.2-1.0); BLOOD UREA NITROGEN 10 MG/DL (7-18); CALCIUM LEVEL 9.1 MG/DL (8.5-10.1); CARBON DIOXIDE LEVEL 28 MEQ/L (21-32); CHLORIDE LEVEL 106 MEQ/L (98-107); CHOLESTEROL LEVEL 172 MG/DL (<200); CHOLESTEROL RISK RATIO 2.356 (<5); GLOMERULAR FILTRATION RATE > 60.0 (>60); GLUCOSE, FASTING 78 MG/DL (70-100); HDL CHOLESTEROL 73 MG/DL (>40); LDL CHOLESTEROL 85 MG/DL (<100); LIPASE 50 U/L (73-393); NON-HDL-C 99 MG/DL; SODIUM LEVEL 140 MEQ/L (136-145); TRIGLYCERIDES LEVEL 71 MG/DL (<150)
[2021-07-26 17:47] LABS: HEMOGLOBIN A1c 5.4 %
== END ==
LOC: M PLALAB 15:05
PROVIDERS: ATTEND Physician Assistant Medical
DX: R10.84 Generalized abdominal pain (principal)

== ENCOUNTER → 2021-08-22 | Outpatient (CLI) | payer BC, OTHER | LOC: M WHC 12:08 | PROVIDERS: ATTEND Advanced Practice Midwife | DX: N63.20 Unspecified lump in the left breast, unspecified quadrant (principal) ==

== ENCOUNTER → 2022-06-29 | Outpatient (CLI) | payer BC, OTHER ==
[~2022-06-29] MED LIST changes: +ALBU8.5H; +BUPR-71; +FLUTISP; +HYDR1CAP25; +OMEP-173; +PARO20TA3
== END ==
LOC: M LABSMTC 10:34
PROVIDERS: ATTEND Anesthesiology
DX: Z01.818 Encounter for other preprocedural examination (principal)

== ENCOUNTER → 2022-07-16 | Outpatient (CLI) | payer BC, OTHER ==
[~2022-07-16] MED LIST changes: -BUPR-71; +BUPR-71 PO; -PARO20TA3; +PARO20TA3 PO
[2022-07-16 13:43] LABS: BASO # 0.1 10^3/uL (0.0-0.2); BASO % 1.1 % (0.0-1.0); HEMATOCRIT 38.7 % (36.0-47.0); HEMOGLOBIN 12.8 g/dl (12.0-15.5); LYMPH # 1.6 10^3/uL (1.5-5.0); LYMPH % 24.8 % (24.0-44.0); MEAN CORPUSCULAR HEMOGLOBIN 30.4 pg (27.0-33.0); MEAN CORPUSCULAR HGB CONC 33.1 g/dl (32.0-36.5); MEAN CORPUSCULAR VOLUME 91.9 fl (80.0-96.0); MONO # 0.4 10^3/uL (0.0-0.8); MONO % 6.2 % (2.0-8.0); NEUTROPHILS # 4.5 10^3/uL (1.5-8.5); NEUTROPHILS % 67.7 % (36.0-66.0); PLATELET COUNT, AUTOMATED 275 10^3/uL (150-450); RED BLOOD COUNT 4.21 10^6/uL (4.00-5.40); WHITE BLOOD COUNT 6.6 10^3/uL (4.0-10.0)
[2022-07-16 14:05] LABS: HEMOGLOBIN A1c 4.8 % (4.0-6.0)
[2022-07-16 14:13] LABS: ALBUMIN 4.2 G/DL (3.2-5.2); ALKALINE PHOSPHATASE 63 U/L (46-116); ALT/SGPT 90 U/L (7.0-40); AST/SGOT 37 U/L (<34); BILIRUBIN,TOTAL 0.5 MG/DL (0.3-1.2); BLOOD UREA NITROGEN 11 MG/DL (9-23); CALCIUM LEVEL 9.4 MG/DL (8.5-10.1); CARBON DIOXIDE LEVEL 29 MMOL/L (20-31); CHLORIDE LEVEL 107 MMOL/L (98-107); CHOLESTEROL LEVEL 168 MG/DL (<200); CHOLESTEROL RISK RATIO 2.89 (<5); CREATININE FOR GFR 0.66 MG/DL (0.55-1.30); GLOMERULAR FILTRATION RATE > 60.0 (>60); GLUCOSE, FASTING 88 MG/DL (60-100); LDL CHOLESTEROL 88.4 MG/DL (<100); NON-HDL-C 110 MG/DL; POTASSIUM SERUM 4.2 MMOL/L (3.5-5.1); SODIUM LEVEL 141 MMOL/L (136-145); TOTAL PROTEIN 6.8 G/DL (5.7-8.2); TRIGLYCERIDES LEVEL 108 MG/DL (<150)
[2022-07-16 14:14] LABS: FREE T4 1.06 NG/DL (0.89-1.76); THYROID STIMULATING HORMONE 3.366 uIU/ML (0.55-4.78)
== END ==
LOC: M PLALAB 11:15
PROVIDERS: ATTEND Physician Assistant Medical
DX: F41.1 Generalized anxiety disorder (principal); Z13.220 Encounter for screening for lipoid disorders; Z13.1 Encounter for screening for diabetes mellitus; J30.2 Other seasonal allergic rhinitis

== ENCOUNTER → 2022-07-25 | Outpatient (CLI) | payer BC, OTHER ==
[2022-07-25 17:23] LABS: INR 1.01; PROTHROMBIN TIME 13.5 SECONDS (12.5-14.5)
[2022-07-25 17:24] LABS: PARTIAL THROMBOPLASTIN TIME 30.6 SECONDS (24.8-34.2)
[2022-07-25 17:38] LABS: HEPATITIS B SURFACE ANTIBODY POSITIVE (POSITIVE); IRON (FE) 79 UG/DL (50-170)
[2022-07-25 17:49] LABS: HEPATITIS B SURFACE ANTIGEN NEGATIVE (NEGATIVE)
== END ==
LOC: M PLALAB 15:20
PROVIDERS: ATTEND Physician Assistant Medical
DX: R79.89 Other specified abnormal findings of blood chemistry (principal)

== ENCOUNTER 2022-07-28 07:11 | Day surgery (SDC) | payer BC, OTHER ==
[~2022-07-28] VITALS: Ht 157.5 cm; Wt 77.6 kg
[~2022-07-28 07:11] MED LIST changes: +LIDOCAINE 2% 100MG/5ML SDV (FOR ANES.) As Ordered ONE; +NS 1,000 ML IV ONE; +propofoL 200 MG/20 ML VIAL As Ordered ONE
[2022-07-28 09:13] VITALS: BP 124/61
== END 2022-07-28 09:32 | disposition home or self-care (01) ==
LOC: M OPP 07:11
PROVIDERS: ATTEND Internal Medicine Gastroenterology
DX: Z12.11 Encounter for screening for malignant neoplasm of colon (principal); Z83.71 Family history of colonic polyps; K64.0 First degree hemorrhoids; J45.909 Unspecified asthma, uncomplicated; Z79.51 Long term (current) use of inhaled steroids; Z79.899 Other long term (current) drug therapy

== ENCOUNTER → 2022-12-03 | Outpatient (REF) | payer BC, OTHER ==
[~2022-12-03] MED LIST changes: +FLUT50SP17; -FLUTISP; -LIDOCAINE 2% 100MG/5ML SDV (FOR ANES.) As Ordered ONE; -NS 1,000 ML IV ONE; -propofoL 200 MG/20 ML VIAL As Ordered ONE
[2022-12-03 14:21] LABS: APPEARANCE, URINE CLEAR (CLEAR); BACTERIA, URINE AUTO NEGATIVE (NEGATIVE); BILIRUBIN, URINE AUTO NEGATIVE (NEGATIVE); BLOOD, URINE BLOOD NEGATIVE (NEGATIVE); COLOR, URINE YELLOW (YELLOW); GLUCOSE, URINE (UA) AUTO NEGATIVE (NEGATIVE); KETONE, URINE AUTO NEGATIVE (NEGATIVE); LEUKOCYTE ESTERASE, URINE AUTO NEGATIVE (NEGATIVE); NITRITE, URINE AUTO NEGATIVE (NEGATIVE); PROTEIN, URINE AUTO NEGATIVE (NEGATIVE); RBC, URINE AUTO 1 /HPF (0-3); SPECIFIC GRAVITY URINE AUTO 1.012 (1.002-1.035); SQUAMOUS EPITHELIAL CELL UR AU 0 /HPF (0-6); UROBILINOGEN, URINE AUTO 0.2 mg/dL (0.0-2.0); WBC, URINE AUTO 1 /HPF (0-3)
== END ==
LOC: M SFHCPLAZ 13:10
PROVIDERS: ATTEND Physician Assistant Medical
DX: Z15.09 Genetic susceptibility to other malignant neoplasm (principal)

== ENCOUNTER → 2023-09-30 | Outpatient (CLI) | payer BC ==
[~2023-09-30] MED LIST changes: -FLUT50SP17; +FLUTISP
[2023-09-30 18:05] LABS: BASO # 0.1 10^3/uL (0.0-0.2); BASO % 1.7 % (0.0-1.0); EOS # 0.1 10^3/uL (0.0-0.5); EOS % 0.9 % (0.0-3.0); HEMATOCRIT 38.1 % (36.0-47.0); HEMOGLOBIN 12.7 g/dl (12.0-15.5); LYMPH # 1.9 10^3/uL (1.5-5.0); LYMPH % 28.3 % (24.0-44.0); MEAN CORPUSCULAR HEMOGLOBIN 30.3 pg (27.0-33.0); MEAN CORPUSCULAR HGB CONC 33.3 g/dl (32.0-36.5); MEAN CORPUSCULAR VOLUME 90.9 fl (80.0-96.0); MONO # 0.6 10^3/uL (0.0-0.8); MONO % 8.4 % (2.0-8.0); NEUTROPHILS % 60.5 % (36.0-66.0); PLATELET COUNT, AUTOMATED 249 10^3/uL (150-450); RED BLOOD COUNT 4.19 10^6/uL (4.00-5.40); WHITE BLOOD COUNT 6.5 10^3/uL (4.0-10.0)
[2023-09-30 18:09] LABS: ALBUMIN 4.1 G/DL (3.2-5.2); ALKALINE PHOSPHATASE 45 U/L (46-116); ALT/SGPT 26 U/L (7.0-40); AST/SGOT < 8 U/L (<34); BILIRUBIN,TOTAL 0.6 MG/DL (0.3-1.2); BLOOD UREA NITROGEN 12 MG/DL (9-23); CALCIUM LEVEL 9.3 MG/DL (8.5-10.1); CARBON DIOXIDE LEVEL 27 MMOL/L (20-31); CHLORIDE LEVEL 107 MMOL/L (98-107); CHOLESTEROL LEVEL 157 MG/DL (<200); CHOLESTEROL RISK RATIO 2.82 (<5); CREATININE FOR GFR 0.77 MG/DL (0.55-1.30); GLOMERULAR FILTRATION RATE > 60.0 (>60); GLUCOSE, FASTING 73 MG/DL (60-100); HDL CHOLESTEROL 55.6 MG/DL (>40); NON-HDL-C 101.4 MG/DL; POTASSIUM SERUM 3.6 MMOL/L (3.5-5.1); SODIUM LEVEL 141 MMOL/L (136-145); TOTAL PROTEIN 6.8 G/DL (5.7-8.2); TRIGLYCERIDES LEVEL 52 MG/DL (<150)
[2023-09-30 18:25] LABS: HEMOGLOBIN A1c 4.8 % (4.0-6.0)
== END ==
LOC: M PLALAB 15:17
PROVIDERS: ATTEND Physician Assistant Medical
DX: J30.2 Other seasonal allergic rhinitis (principal); Z13.220 Encounter for screening for lipoid disorders; Z13.1 Encounter for screening for diabetes mellitus

== ENCOUNTER → 2024-02-19 | Outpatient (CLI) | payer BC, OTHER ==
[2024-02-19 15:53] LABS: BASO # 0.1 10^3/uL (0.0-0.2); BASO % 1.1 % (0.0-1.0); HEMATOCRIT 38.8 % (36.0-47.0); LYMPH # 1.9 10^3/uL (1.5-5.0); LYMPH % 29.1 % (24.0-44.0); MEAN CORPUSCULAR HEMOGLOBIN 30.5 pg (27.0-33.0); MEAN CORPUSCULAR HGB CONC 33.5 g/dl (32.0-36.5); MEAN CORPUSCULAR VOLUME 91.1 fl (80.0-96.0); MONO # 0.5 10^3/uL (0.0-0.8); MONO % 6.9 % (2.0-8.0); NEUTROPHILS # 4.1 10^3/uL (1.5-8.5); NEUTROPHILS % 62.7 % (36.0-66.0); PLATELET COUNT, AUTOMATED 279 10^3/uL (150-450); RED BLOOD COUNT 4.26 10^6/uL (4.00-5.40); WHITE BLOOD COUNT 6.6 10^3/uL (4.0-10.0)
[2024-02-19 16:17] LABS: C REACTIVE PROTEIN QUANTITATIV < 0.40 MG/DL (<1.0)
[2024-02-19 16:18] LABS: ALBUMIN 4.3 G/DL (3.2-5.2); ALKALINE PHOSPHATASE 50 U/L (46-116); ALT/SGPT 30 U/L (7.0-40); AST/SGOT 8 U/L (<34); BLOOD UREA NITROGEN 12 MG/DL (9-23); CALCIUM LEVEL 9.5 MG/DL (8.5-10.1); CARBON DIOXIDE LEVEL 28 MMOL/L (20-31); CHLORIDE LEVEL 107 MMOL/L (98-107); CREATININE FOR GFR 0.75 MG/DL (0.55-1.30); GLOMERULAR FILTRATION RATE > 60.0 (>60); GLUCOSE, FASTING 91 MG/DL (60-100); POTASSIUM SERUM 3.4 MMOL/L (3.5-5.1); SODIUM LEVEL 140 MMOL/L (136-145); TOTAL PROTEIN 7.2 G/DL (5.7-8.2)
[2024-02-19 16:22] LABS: FREE T4 1.13 NG/DL (0.89-1.76)
[2024-02-19 16:41] LABS: ERYTHROCYTE SEDIMENTATION RATE 2 mm/hr (0-20)
== END ==
LOC: M PLALAB 14:02
PROVIDERS: ATTEND Physician Assistant Medical
DX: R59.0 Localized enlarged lymph nodes (principal); L65.9 Nonscarring hair loss, unspecified

== ENCOUNTER → 2024-05-03 | Outpatient (CLI) | payer BC ==
[2024-05-03 15:50] LABS: BASO # 0.1 10^3/uL (0.0-0.2); BASO % 0.8 % (0.0-1.0); EOS % 0.1 % (0.0-3.0); HEMATOCRIT 35.6 % (36.0-47.0); HEMOGLOBIN 11.9 g/dl (12.0-15.5); LYMPH # 1.6 10^3/uL (1.5-5.0); LYMPH % 21.9 % (24.0-44.0); MEAN CORPUSCULAR HEMOGLOBIN 30.5 pg (27.0-33.0); MEAN CORPUSCULAR HGB CONC 33.4 g/dl (32.0-36.5); MEAN CORPUSCULAR VOLUME 91.3 fl (80.0-96.0); MONO # 0.5 10^3/uL (0.0-0.8); MONO % 7.4 % (2.0-8.0); NEUTROPHILS % 69.5 % (36.0-66.0); PLATELET COUNT, AUTOMATED 249 10^3/uL (150-450); WHITE BLOOD COUNT 7.2 10^3/uL (4.0-10.0)
[2024-05-03 16:18] LABS: ERYTHROCYTE SEDIMENTATION RATE 1 mm/hr (0-20)
== END ==
LOC: M PLALAB 12:05
PROVIDERS: ATTEND Physician Assistant Medical
DX: R59.0 Localized enlarged lymph nodes (principal)

== ENCOUNTER → 2024-05-31 | Outpatient (CLI) | payer BC | LOC: M RAD 14:41 | PROVIDERS: ATTEND Physician Assistant Medical | DX: R59.0 Localized enlarged lymph nodes (principal); J84.10 Pulmonary fibrosis, unspecified ==

== ENCOUNTER → 2024-09-21 | Outpatient (CLI) | payer MEDICAID | LOC: M WHC 13:44 | PROVIDERS: ATTEND Physician Assistant Medical | DX: R59.0 Localized enlarged lymph nodes (principal) ==

== ENCOUNTER 2025-01-23 15:38 | Inpatient (IN) | payer BC, MEDICAID ==
[~2025-01-23] VITALS: Ht 154.9 cm; Wt 65.6 kg
[2025-01-23 16:41] LABS: PLATELET COUNT, AUTOMATED 284 10^3/uL (150-450)
[2025-01-23 17:01] LABS: ETHYL ALCOHOL (ETHANOL) 0.003 % (0.000-0.010)
[2025-01-23 17:02] LABS: SALICYLATE LEVEL < 3.0 MG/DL (<30)
[2025-01-23 17:03] LABS: ALT/SGPT 22 U/L (7.0-40); AST/SGOT 18 U/L (<34); CALCIUM LEVEL 9.1 MG/DL (8.5-10.1); CARBON DIOXIDE LEVEL 27 MMOL/L (20-31); CHLORIDE LEVEL 104 MMOL/L (98-107); CREATININE FOR GFR 0.72 MG/DL (0.55-1.30); GLOMERULAR FILTRATION RATE > 90.0 (>60); POTASSIUM SERUM 3.9 MMOL/L (3.5-5.1); SODIUM LEVEL 143 MMOL/L (136-145)
[2025-01-23 17:30] LABS: HCG, SERUM QUALITATIVE NEGATIVE (NEGATIVE)
[2025-01-23] MEDS ORDERED: BUPR150T12 PO (17:39)
[2025-01-23] MEDS ORDERED: BUPR-766 PO (17:39)
[2025-01-23] MEDS ORDERED: HOME MED LIST COMPLETE! XX SCH (17:40)
[2025-01-23] MEDS ORDERED: ACETAMINOPHEN 325 MG TAB PO PRN (17:40)
[2025-01-23] MEDS ORDERED: MOM 30 ML SUSPENSION UDC PO PRN (17:40)
[2025-01-23] MEDS ORDERED: traZODone 50 MG TAB PO PRN (17:40)
[2025-01-23] MEDS ORDERED: IBUPROFEN 400 MG TAB PO PRN (17:40)
[2025-01-23] MEDS ORDERED: MAALOX 30 ML SUSP *UDC PO PRN (17:40)
[2025-01-23 18:57] LABS: AMPHETAMINES LEVEL URINE NEGATIVE (NEGATIVE); BENZODIAZEPINES URINE NEGATIVE (NEGATIVE)
[2025-01-23 18:58] LABS: BARBITURATES URINE NEGATIVE (NEGATIVE); CANNABINOIDS URINE NEGATIVE (NEGATIVE); COCAINE METABOLITE URINE NEGATIVE (NEGATIVE); METHADONE URINE NEGATIVE (NEGATIVE); OPIATES URINE NEGATIVE (NEGATIVE); PHENCYCLIDINE URINE NEGATIVE (NEGATIVE)
[2025-01-23 20:58] VITALS: BP 127/81; TEMP 97.7; O2SAT 99
[2025-01-24 06:18] VITALS: BP 100/55; TEMP 97.5; O2SAT 100
[2025-01-24] MEDS ORDERED: PROPRANOLOL 10 MG TAB PO PRN (09:20)
[2025-01-24] MEDS: ESCITALOPRAM OXALATE 10 MG TABLET PO SCH (09:37)
[2025-01-24] MEDS: buPROPion **XL** 150 MG TABLET PO SCH (09:37)
[2025-01-24 15:16] VITALS: BP 110/60; TEMP 97.6; O2SAT 98
[2025-01-25 06:26] VITALS: BP 93/53; TEMP 98.2; O2SAT 97
[2025-01-25] MEDS ORDERED: buPROPion **XL** 150 MG TABLET PO SCH (09:00)
[2025-01-25 14:36] VITALS: BP 99/55; TEMP 98.8; O2SAT 100
[2025-01-26 06:26] VITALS: BP 104/62; TEMP 98.5; O2SAT 98
[2025-01-26] MEDS ORDERED: LEXA1TAB PO (09:24)
[2025-01-26] MEDS ORDERED: BUPR150T12 PO (09:24)
[2025-01-26] MEDS ORDERED: TRAZ-252 PO (09:24)
== END 2025-01-26 13:42 | disposition home or self-care (01) | DRG 756 ==
LOC: M ED 17:18 → M ED INP 17:38 → M PSY 20:53
PROVIDERS: ADMIT Psychiatry & Neurology Neurology; ATTEND Psychiatry & Neurology Psychiatry
DX: F41.9 Anxiety disorder, unspecified (principal); R45.851 Suicidal ideations; F32.9 Major depressive disorder, single episode, unspecified; G43.909 Migraine, unspecified, not intractable, without status migrainosus; Z60.0 Problems of adjustment to life-cycle transitions; Z79.899 Other long term (current) drug therapy